=== PATIENT | female | born 1985 | race Two or more races ===

== ENCOUNTER 2017-08-29 12:16 | Emergency (ER) | payer SELFPAY ==
[2017-08-29] MEDS: ACETAMINOPHEN 500 MG TABLET PO ×2 (12:59)
[2017-08-29 13:28] LABS: INFLUENZA A PATIENT POSITIVE (NEGATIVE); INFLUENZA B PATIENT NEGATIVE (NEGATIVE); OBC FLU VALID
[2017-08-29] MEDS: OSELTAMIVIR 75 MG CAPSULE PO ×2 (13:59)
[2017-08-29 14:29] LABS: NEGATIVE OBC STREP NEG; POSITIVE OBC STREP POS
== END 2017-08-29 14:26 | disposition home or self-care (01) ==
LOC: ER 12:16
DX: O99.511 Diseases of the respiratory system complicating pregnancy, first trimester (principal); J09.X2 Influenza due to identified novel influenza A virus with other respiratory manifestations; Z3A.01 Less than 8 weeks gestation of pregnancy
CPT/HCPCS: 87070; 87804; 87804-59; 87880; 99284